=== PATIENT | male | born 1980 | race Caucasian/White ===

== ENCOUNTER 2020-04-07 14:52 | Emergency (ER) | payer MEDICAID ==
[2020-04-07 15:07] VITALS: BP 147/86; PULSE 77; O2SAT 97
--- NOTE | 2020-04-07 15:13 | ERPHSYRPT ---
- History of Present Illness Time Seen by Provider: 04/07/20 15:10 Source: patient Exam Limitations: no limitations Patient Subjective Stated Complaint: " I got mad this morning and punched the floor, I think my right hand is dislocated or fractured" Triage Nursing Assessment: Pt presents to ER with complaints of right hand injury, pt does have swelling and deformity to right hand. Has limited ROM of hand/fingers, able to move wrist, forearm, and denies any other injuries. Pt is alert and oriented x 3. States has been "under a lot of stress lately" which made him want to punch the floor. Pt denies any depression, suicidal ideation, ect. Pt respirations are easy and unlabored. Denies n/v/d. Pt states pain is 2/10 scale. Physician History: Patient is a 39-year-old male presents to our ED with complaints of right hand pain. Patient states that he has been under a significant amount of stress lately. Early this morning patient was upset and punched the floor. Patient has been experiencing progressive swelling and pain to the area of involvement. No other injuries reported. Patient denies wrist elbow shoulder pain. Pain currently rated 2 out of 10. Patient declined pain medication. Patient states he is otherwise healthy. He voices no other complaints concerns at this time. Patient denies HI SI. Occurred: other (Stay floor this morning.) Quality: constant Severity of Pain-Max: moderate Severity of Pain-Current: mild Extremities Pain Location: hand: right Modifying Factors: Improves With: immobilization, movement, other (Patient declined pain medication.) Associated Symptoms: none Allergies/Adverse Reactions: No Known Drug Allergies Allergy (Unverified 04/07/20 15:07) Hx Tetanus, Diphtheria Vaccination/Date Given: Yes Hx Influenza Vaccination/Date Given: Yes Hx Pneumococcal Vaccination/Date Given: No Immunizations Up to Date: Yes Travel Risk - International Travel Have you traveled outside of the country in past 3 weeks: No - Coronavirus Screening Are you exhibiting any of the following symptoms?: No Close contact with a COVID-19 positive Pt in past 14-21 Days: No - Review of Systems Constitutional: No Symptoms, No Fever, No Chills Eyes: No Symptoms Ears, Nose, & Throat: No Symptoms Respiratory: No Symptoms, No Cough, No Dyspnea Cardiac: No Symptoms, No Chest Pain, No Edema, No Syncope Abdominal/Gastrointestinal: No Symptoms, No Abdominal Pain, No Nausea, No Vomiting, No Diarrhea Genitourinary Symptoms: No Symptoms, No Dysuria Musculoskeletal: No Symptoms, No Back Pain, No Neck Pain Skin: No Symptoms, No Rash Neurological: No Symptoms, No Dizziness, No Focal Weakness, No Sensory Changes Psychological: No Symptoms Endocrine: No Symptoms Hematologic/Lymphatic: No Symptoms Immunological/Allergic: No Symptoms All Other Systems: Reviewed and Negative - Past Medical History Pertinent Past Medical History: No - Past Surgical History Past Surgical History: No - Social History Smoking Status: Never smoker Exposure to second hand smoke: No Drug Use: none Patient Lives Alone: No - Nursing Vital Signs Nursing Vital Signs: Initial Vital Signs Temperature 98.2 F 04/07/20 15:00 Pulse Rate 77 04/07/20 15:00 Respiratory Rate 16 04/07/20 15:00 Blood Pressure 147/86 04/07/20 15:00 O2 Sat by Pulse Oximetry 97 04/07/20 15:00 Pain Scale Pain Intensity 2 - Physical Exam General Appearance: no apparent distress, alert Eyes, Ears, Nose, Throat Exam: moist mucous membranes Neck Exam: non-tender, supple Cardiovascular/Respiratory Exam: chest non-tender, normal breath sounds, regular rate/rhythm, no respiratory distress Abdominal Exam: non-tender, No guarding Back Exam: normal inspection, No vertebral tenderness Shoulder Exam: normal inspection, non-tender, no evidence of injury, normal ROM Elbow/Forearm Exam: normal inspection, non-tender, no evidence of injury, normal ROM Wrist Exam: normal inspection, non-tender, no evidence of injury, normal ROM Hand Exam: bone tenderness, soft tissue tenderness, swelling, No nail injury Neuro/Tendon Exam: normal sensation, normal motor functions, normal tendon functions Mental Status Exam: alert, oriented x 3, cooperative Skin Exam: normal color, warm, dry SpO2 Interpretation: normal SpO2: 97 O2 Delivery: Room Air - Course Nursing assessment & vital signs reviewed: Yes - Radiology Exams Hand X-ray Interpretation: Teleradiologist Report (Mildly angulated distal fifth metacarpal shaft fracture with soft tissue swelling. No other bony articular or soft tissue abnormalities observed.) Ordered Tests: Active Orders 24 hr Category Date Time Status HAND (MINIMUM 3 VIEWS) Stat Exams 04/07/20 15:22 Completed - Progress Progress: improved Progress Note: 04/07/20 15:51 Patient reassessed. Patient has a boxer's fracture of his right hand. Patient declined reduction. Patient is in a hurry due to family obligations and prefers to have the orthopedic clinic reduce the fracture tomorrow. Patient was placed in a splint. Orthopedic referral completed. Patient agrees to follow-up tomorrow as advised. Patient voiced no other complaints or concerns at this time. Patient declined pain medication. Splint applied. Patient neurovascular intact distally post splint application. 04/07/20 15:56 Counseled pt/family regarding: diagnosis, need for follow-up, rad results - Departure Departure Disposition: Home Clinical Impression: Closed fracture of 5th metacarpal Condition: Stable Critical Care Time: No Instructions: Hand Fracture (DC), Boxer's Fracture (DC) Additional Instructions: Discharge/Care Plan BRANDON LU ALONZO was seen on 04/07/20 in the Emergency Room. The patient was counseled regarding Diagnosis,Lab results, Imaging studies, need for follow up and when to return to the Emergency Room. Prescriptions given: Discharge Note I have spoken with the patient and/or caregivers. I have explained the patient's condition, diagnosis and treatment plan based on the information available to me at this time. I have answered the patient's and/or caregiver's questions and addressed any concerns. The patient and/or caregivers have as good understanding of the patient's diagnosis, condition and treatment plan as can be expected at this point. The vital signs have been stable. The patient's condition is stable and appropriate for discharge from the emergency department. The patient will pursue further outpatient evaluation with the primary care physician or other designated or consulting physician as outlined in the discharge instructions. The patient and/or caregivers are agreeable to this plan of care and follow-up instructions have been explained in detail. The patient and/or caregivers have received these instruction. The patient/and or caregivers are aware that any significant change in condition or worsening of symptoms should prompt an immediate return to this or the closest emergency department or call 911.
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
== END 2020-04-07 16:14 | disposition home or self-care (01) ==
LOC: ED 14:52
DX: S62.306A Unspecified fracture of fifth metacarpal bone, right hand, initial encounter for closed fracture (principal); W22.8XXA Striking against or struck by other objects, initial encounter; Y93.9 Activity, unspecified; Y92.9 Unspecified place or not applicable; Y99.9 Unspecified external cause status; M79.641 Pain in right hand
CPT/HCPCS: 73130; 99283

== ENCOUNTER 2020-04-17 20:08 | Emergency (ER) | payer MEDICAID ==
--- NOTE | 2020-04-17 20:28 | ERPHSYRPT ---
- History of Present Illness Time Seen by Provider: 04/17/20 20:28 Source: patient Exam Limitations: no limitations Physician History: pt had hand surgery saturday then pain left ear/scalp saturday and broke out today with shingles in that dermatome. no fever , no eye symptoms, no other symptoms or other pain. no trauma. Timing/Duration: abrupt onset ENT Location: ear (L) Prearrival Treatment: over the counter meds Modifying Factors: Improves With: nothing Associated Symptoms: ear pain (L) Allergies/Adverse Reactions: No Known Drug Allergies Allergy (Verified 04/17/20 20:15) Home Medications: Hydrocodone/Acetaminophen [Hydrocodone-Acetamin 5-325 mg] 1 tab PO Q6H PRN PRN 04/17/20 [History] Ketorolac Trometh 10 mg Tab [TORAdol 10 MG TABLET] 10 mg PO Q6H PRN 04/17/20 [History] Hx Tetanus, Diphtheria Vaccination/Date Given: Yes Hx Influenza Vaccination/Date Given: Yes Hx Pneumococcal Vaccination/Date Given: No - Review of Systems Constitutional: No Fever, No Chills Eyes: No Symptoms Ears, Nose, & Throat: Ear Pain, Other (paules vesicles on scalp and left node ) Respiratory: No Cough, No Dyspnea Cardiac: No Chest Pain, No Edema, No Syncope Abdominal/Gastrointestinal: No Abdominal Pain, No Nausea, No Vomiting, No Diarrhea Genitourinary Symptoms: No Dysuria Musculoskeletal: No Back Pain, No Neck Pain Skin: Rash (shingles) Neurological: No Dizziness, No Focal Weakness, No Sensory Changes Psychological: No Symptoms Endocrine: No Symptoms All Other Systems: Reviewed and Negative - Past Medical History Pertinent Past Medical History: No - Past Surgical History Past Surgical History: No - Social History Smoking Status: Never smoker Exposure to second hand smoke: No Drug Use: none Patient Lives Alone: No - Physical Exam General Appearance: no apparent distress Eye Exam: bilateral eye: normal inspection, PERRL, EOMI Ear Exam: bilateral ear: auricle normal, canal normal, TM normal Nasal Exam: normal inspection Throat Exam: normal, pharynx normal Neck Exam: normal inspection, non-tender, supple, full range of motion, lymphadenopathy (L) Cardiovascular/Respiratory Exam: chest non-tender, normal breath sounds, regular rate/rhythm, heart sounds normal Abdominal Exam: non-tender, soft Neurologic Exam: alert, oriented x 3, cooperative, tool drawing checker II-XII nml as tested Skin Exam: normal color, warm, dry, rash (shngles left scalp/ear) - Course Nursing assessment & vital signs reviewed: Yes - Progress Progress: unchanged Counseled pt/family regarding: diagnosis, need for follow-up - Departure Departure Disposition: Home Clinical Impression: Shingles Condition: Good Critical Care Time: No Referrals: ALEISHA BRUCE MD [Primary Care Provider] - Instructions: Shingles (DC) Additional Instructions: avoid contact with anyone who has not been vacinated for chicken pox or has not had chicken pox and stay off work until everything has scabbed over. return or see your Dr. meantime if not improving or any concerns. you may take your hand pain med if needed for this. take tylenol, motrin or alleve as well when needed. Prescriptions: Famciclovir 500 mg PO TID #20 tablet
[2020-04-17 20:37] VITALS: O2SAT 98
[2020-04-17] MEDS ORDERED: ZOVIRAX 200 MG PO ONE (20:45)
[2020-04-17] MEDS ORDERED: ZOVIRAX 200 MG ONE (20:47)
[2020-04-17 20:59] VITALS: BP 122/87; PULSE 77
== END 2020-04-17 20:59 | disposition home or self-care (01) ==
LOC: ED 20:08
DX: B02.9 Zoster without complications (principal)
CPT/HCPCS: 99283; A9270-GY